=== PATIENT | male | born 1980 | race Caucasian/White ===

== ENCOUNTER 2019-07-25 04:37 | Emergency (ER) | payer MEDICAID ==
[~2019-07-25] VITALS: Ht 182.9 cm; Wt 89.2 kg
[2019-07-25] MEDS ORDERED: SODIUM CHLORIDE FLUSH 10ML SYR IVF ONE (05:00)
[2019-07-25] MEDS ORDERED: AMPICILLIN/SULBACTAM 3 GM in SODIUM CHLORIDE 0.9% 100 ML IV ONE (05:00)
[2019-07-25] MEDS ORDERED: SODIUM CHLORIDE 0.9% 1,000ML IVBOLUS ONE (05:00)
--- NOTE | 2019-07-25 05:07 | NUR ---
Rn to bedside after midlevel provider assessed patient and placed orders. Informed of the need for peripheral intravenous access. Patient slurring words, repeated several questions over and over despite answering questions. Patient's affect consistent with alcohol intoxication. RN to bedside to start IV when xray coroner forensic technician arrived. Patient ambulated out of room for xrays, will return to room and initiate intravenous access and intrevenous medications.
[2019-07-25 05:26] VITALS: BP 122/80
== END 2019-07-25 06:27 | disposition home or self-care (01) ==
LOC: ED 06:20
DX: S61.352A Open bite of right middle finger with damage to nail, initial encounter (principal); W50.3XXA Accidental bite by another person, initial encounter; Y93.89 Activity, other specified; Y92.410 Unspecified street and highway as the place of occurrence of the external cause; Y99.8 Other external cause status
CPT/HCPCS: 73130; 96365; 99283; J0295; J7030